=== PATIENT | female | born 1985 | race Caucasian/White ===

== ENCOUNTER 2016-08-15 02:51 | Inpatient (IN) | payer BC ==
[2016-08-15] MEDS ORDERED: Sodium Chloride 0.9% 10 ML Syringe FLUSH PRN (03:01)
[2016-08-15] MEDS ORDERED: Nalbuphine 20 MG/1 ML Amp IVPUSH PRN (03:01)
[2016-08-15] MEDS ORDERED: Ondansetron 4 MG/2 ML SDV IVPUSH PRN (03:01)
[2016-08-15] MEDS ORDERED: Oxytocin/Lactated Ringers 10 UNIT/1,000 ML BAG IV ONE (03:13)
[2016-08-15] MEDS ORDERED: Oxytocin/Lactated Ringers 10 UNIT/1,000 ML BAG IV SCH (03:15)
[2016-08-15] MEDS ORDERED: Lactated Ringers 1,000 ML IV SCH (03:15)
[2016-08-15] MEDS ORDERED: Lidocaine 1% 20 ML MDV INJECT ONE (03:17)
--- NOTE | 2016-08-15 03:42 | PCM.LDHP ---
L&D History of Present Illness - General Date of Service: 08/15/16 Admit Problem/Dx: Patient Status Order with Admit Dx/Problem 08/15/16 03:01 Patient Status [ADT] Routine Admission Diagnosis/Problem Admission Diagnosis/Problem Normal labor 08/15/16 03:30 38-3/7 week intrauterine , spontaneous labor, precipitous delivery Source of Information: Patient History Limitations: Reports: No Limitations - History of Present Illness Introduction:: History and physical was done after delivery the babyprecipitous delivery with baby delivery less than 20 minutes after patient had arrived at the hospital. History of present illness: Rae is a 31-year-old 2 now para 2001 who was seen last evening in labor and delivery with questionable early labor but some pink discharge. She is dougie approximately every 10 minutes at that time, mild in nature. Patient was discharged home and given instructions as to when to return. She continued to progress through labor with more frequent contractions and began having a Essure feeling in the pelvis. She returned to the hospital and was found to be 9 cm and delivered within 20 minutes. 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 Her last menstrual period started on , was relatively certain, using no control time conception. Cycles come every 28-29 days. Menarche age 13. Positive hCG was 12/24/2015. Previous delivery included a female infant 07/13/2011 at 38 weeks gestational age after 6 hours of labor. It was a normal spontaneous vaginal delivery at [facility]. Child's name is Citlaly . Patient had 3 ultrasounds supporting her LMP dating. First was on 01/05/2016 followed by 1 on 02/08/2016 and 04/19/2016. course was accompanied by anemia in for which she took iron therapy 324 mg per day ferrous sulfate. She also had some clinical depression. She declined genetic testing. She desired a natural delivery. [place] depression screening score however was only 0_of 30 test. Group B strep screen is negative. Patient planned to nurse. The platelet count was minimally decreased throughout the . She has subclinical hyperthyroidism. First visit was on 02/07/2016 at 11 weeks and 2 days. She made good fundal height growth during the course of the and weight 1 from a preliminary weight 149.8-172 pounds. This was a 23 pound weight gain. Baby presented in a vertex presentation. Laboratory testing and shows blood to be a positive. First hemoglobin was 13.9 and platelets are 186,000. Her rubella titer showed immunity. RPR is nonreactive. Urine culture was negative. Hepatitis B surface antigen and HIV S' s are negative. Chlamydia and gonorrhea both negative. TSH was less than 0.007 mU/L. Second trimester labs showed hemoglobin 12.6 g/dL and platelets of 155, 000. Third trimester hemoglobin is 12.8 and platelets are 168,000. Her group B strep screen was negative. Allergies: None Medications: 1. Calcium 500 mg/vitamin D-1 daily. 2. vitamins-1 daily 3. Metronidazole-10 milligrams daily 4. Iron in the form of ferrous sulfate 325 mg tablets-1 daily Past medical history: 1. Vaginal delivery 2. Hyperthyroidism on medications 3. Infertilityuse of Clomid for this . Past surgical history: 1. T&A 1989 2. [place] teeth extraction 2005. Family history: Mother and father are generally healthy. Father has hypercholesterolemia. Mother has lupus which involves her skin. 3 sisters are alive and well. Maternal grandmother is secondary to diabetic complications. Maternal grandfather secondary to Alzheimer's. Paternal grandmother alive with hypertension and increased cholesterol. Also has heart disease and parathyroid disease. Paternal grandfather is alive with elevated lipids and hypertension. No bleeding, blood clotting, anesthesia or problems noted in the family. Social history: Patient is . She lives in [place]. 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. She is a college graduate. Her 's name is Audi Blackburn. She does not use any significant amounts of alcohol, drugs or tobacco. Review of systems: Skin-negative Cardiovascular-no chest pain or exercise intolerance Respiratory-denies any infectious or asthma symptoms Breasts -changes associated with only GI-negative -changes associated with Musculoskeletal-occasional minimal edema Neurologicalnegative Physical exam: In general the patient is a well-nourished, pleasant female status post delivery of a viable infant. She is alert and oriented 3 and is a good historian. Skin is warm and dry without lesions. HEENT, neck and back within normal limits Lungs are clear with good breath sounds. Cardiovascular exam shows regular rate and rhythm without murmurs. Breast exam deferred. Abdomen is flat, soft, nontender with uterus at umbilicus -2 cm. Patient status post delivery. Uterus is firm with Pitocin running. Extremities are within normal limits as is neurological exam - Related Data Allergies/Adverse Reactions: Allergies Allergy/AdvReac Type Severity Reaction Status Date / Time No Known Allergies Allergy Verified 08/15/16 03:03 H&P Review of Systems - Review of Systems: Review Of Systems: See Below L&D Exam - Exam Exam: See Below - Vital Signs Weight: 77.882 kg Problem List Initiated/Reviewed/Updated: Yes Orders Last 24hrs: Active Orders 24 hr Category Date Time Status Patient Status [ADT] Routine ADT 08/15/16 03:01 Active Activity as Tolerated [RC] PFP Care 08/15/16 03:01 Active Communication Order [RC] ASDIRECTED Care 08/15/16 03:01 Active Heart Tones [RC] ASDIRECTED Care 08/15/16 03:01 Active Notify Provider [RC] PFP Care 08/15/16 03:01 Active Notify Provider [RC] PRN Care 08/15/16 03:01 Active Peripheral IV Care [RC] . DIRECTED Care 08/15/16 03:01 Active Vital Signs [RC] PER UNIT ROUTINE Care 08/15/16 03:01 Active Lactated Ringers [Ringers, Lactated] 1,000 ml Med 08/15/16 03:15 Active IV ASDIRECTED Nalbuphine [Nubain] Med 08/15/16 03:01 Active 10 mg IVPUSH Q2H PRN Ondansetron [Zofran] Med 08/15/16 03:01 Active 4 mg IVPUSH Q4H PRN Oxytocin/Lactated Ringers [Pitocin in LR 10 Units/1,000 Med 08/15/16 03:15 Active ML] 10 unit in 1,000 ml IV TITRATE Sodium Chloride 0.9% [Saline Flush] Med 08/15/16 03:01 Active 10 ml FLUSH ASDIRECTED PRN Electronic Heart Tones Ext w TOCO [WOMSER] Oth 08/15/16 03:01 Ordered Routine Electronic Heart Tones Internal [WOMSER] Per Unit Oth 08/15/16 03:01 Ordered Routine Peripheral IV Insertion Adult [OM.PC] Routine Oth 08/15/16 03:01 Ordered Resuscitation Status Routine Resus Stat 08/15/16 03:01 Ordered Medication Orders Lactated Ringer's (Ringers, Lactated) 1,000 mls @ 100 mls/hr IV ASDIRECTED FRANCESCA Oxytocin/Lactated Ringer's (Pitocin In Lr 10 Units/1,000 Ml) 10 unit in 1,000 mls @ 500 mls/hr IV TITRATE FRANCESCA PRN Reason: Protocol Nalbuphine HCl (Nubain) 10 mg IVPUSH Q2H PRN PRN Reason: Pain (moderate 4-6) Ondansetron HCl (Zofran) 4 mg IVPUSH Q4H PRN PRN Reason: Nausea/Vomiting Sodium Chloride (Saline Flush) 10 ml FLUSH ASDIRECTED PRN PRN Reason: Keep Vein Open Assessment/Plan Comment:: Assessment: 1. 2 now para 2001 with precipitous delivery occurring less than 20 minutes after arrival in the hospital. Viable, male infant with Apgars of 9 and 9 and a weight of 3240 g (7 lbs. 2 oz.) 2. Group B strep screen negative 3. Patient plans to nurse 4. Rh+ Plan: 1. Routine post care new prepped 2. Motrin and Tylenol for pain control 3. Support nursing decision.
--- NOTE | 2016-08-15 03:49 | PCM.SN ---
- Free Text/Narrative Note: Delivery note: Antoinette is a 31-year-old 2 now para 2002 white female who precipitously delivered on the a.m. of 08/15/2016 within 20 minutes of She had been evaluated in labor and delivery earlier the evening before and sent home with possible early labor. She was dougie approximately every 10 minutes at that time. Contractions picked up and patient arrived back in labor and delivery at 9 cm dilation. She rapidly went to complete and felt the urge to push. She had no anesthetic in place. She then delivered a viable, mcintyre, 3240 g (7 pound, 2 ounce) male infant with Apgars of 9 and 9 and a length of 21 inches in a left occiput anterior position. Shoulders delivered without problems and baby delivered completely and was placed on mom's abdomen. The umbilical cord was allowed to pulsate for 30-60 seconds and then was clamped and then cut by the father. Cord blood was obtained. A small second-degree laceration occurred. The area was infiltrated with approximately 8 mL of 1% lidocaine. It was closed in a routine fashion using 3- 0 Monocryl suture. Patient tolerated this well. Placenta delivered in a Joey presentation, appeared intact and complete. Pitocin was administered per protocol after delivery of the baby. Blood loss is 100 mL. Patient is nursing. Condition: Good
[2016-08-15] MEDS ORDERED: Benzocaine/Menthol 20%-0.5% Spray 56 GM Canister TOP PRN (03:51)
[2016-08-15] MEDS ORDERED: Docusate Sodium 100 MG Cap PO PRN (03:51)
[2016-08-15] MEDS ORDERED: Witch Hazel Medicated Pads 100/Jar TOP PRN (03:51)
[2016-08-15] MEDS ORDERED: Lanolin 100% Cream 7 GM Tube TOP PRN (03:51)
[2016-08-15] MEDS: Ibuprofen 600 MG Tab PO PRN ×4 (04:18→21:58)
[2016-08-15] MEDS: Lidocaine 1% 50 ML MDV ONE (05:13)
[2016-08-15] MEDS: Acetaminophen 325 MG Tab PO PRN ×2 (08:07→14:14)
[2016-08-15] MEDS: Methimazole 5 MG Tab PO SCH (08:07)
[2016-08-16] MEDS: Lidocaine 1% 50 ML MDV ONE (01:58)
[2016-08-16] MEDS: Ibuprofen 600 MG Tab PO PRN (07:59)
[2016-08-16] MEDS: Methimazole 5 MG Tab PO SCH (08:34)
--- NOTE | 2016-08-16 08:51 | PCM.DCSUM1 ---
Discharge Summary - Hospital Course Free Text/Narrative:: Antoinette is a 31-year-old 2 now para 2002 white female who precipitously delivered on the a.m. of 08/15/2016 within 20 minutes of She had been evaluated in labor and delivery earlier the evening before and sent home with possible early labor. She was dougie approximately every 10 minutes at that time. Contractions picked up and patient arrived back in labor and delivery at 9 cm dilation. She rapidly went to complete and felt the urge to push. She had no anesthetic in place. She then delivered a viable, mcintyre, 3240 g (7 pound, 2 ounce) male infant with Apgars of 9 and 9 and a length of 21 inches in a left occiput anterior position. Shoulders delivered without problems and baby delivered completely and was placed on mom's abdomen. The umbilical cord was allowed to pulsate for 30-60 seconds and then was clamped and then cut by the father. Cord blood was obtained. A small second-degree laceration occurred. The area was infiltrated with approximately 8 mL of 1% lidocaine. It was closed in a routine fashion using 3- 0 Monocryl suture. Patient tolerated this well. Placenta delivered in a Joey presentation, appeared intact and complete. Pitocin was administered per protocol after delivery of the baby. Blood loss is 100 mL. Patient is nursing. patient is done very well. She is nursing without concerns, ambulating well and has minimal lochia. Her vital signs and stable. She is desiring discharge home. - Discharge Data Discharge Date: 08/16/16 Discharge Disposition: Home, Self-Care 01 Condition: Good - Patient Instructions Diet: Regular Diet as Tolerated (Nursing diet with increased calcium and calories as directed) Activity: As Tolerated (No intercourse or tampons until bleeding resolves) Driving: May Drive Today Showering/Bathing: May Shower (May take a bath) Notify Provider of: Fever, Increased Pain, Swelling and Redness, Nausea and/or Vomiting - Discharge Plan Home Medications: Home Meds Ibuprofen [IJD: Ibuprofen] 600 mg PO Q4H PRN #30 tablet 08/16/16 [Rx] Referrals: Brent Siegel MD [Primary Care Provider] - (Return to clinic-Dr. Napoles. [facility]-) - Discharge Summary/Plan Comment DC Time >30 min.: No Discharge Summary/Plan Comment: Discharge instructions: 1. Discharge home 2. Regular, high fiber, nursing diet with increased calcium and calories as directed 3. Follow-up and activity discussed in detail with patient. 4. Precautions given concern increased pain, bleeding, temperature, signs/ symptoms of DVT/PE. 5. Medications per home medication list printed, discussed was then given to the patient. 6. Return to clinic-Dr. Siegel[facility]-6 weeks. Diagnosis: 38 week -delivered Condition: Good - Patient Data Vitals - Most Recent: Last Vital Signs Temp 36.4 C 08/15/16 21:13 Pulse 67 08/15/16 21:13 Resp 18 08/15/16 21:13 BP 95/70 08/15/16 21:13 Pulse Ox 99 08/15/16 21:13 Weight - Most Recent: 77.882 kg I&O - Last 24 hours: Intake & Output 08/15/16 08/16/16 08/16/16 22:59 06:59 14:59 Intake Total 360 Balance 360 Lab Results - Last 24 hrs: Laboratory Results - last 24 hr 08/16/16 Range/Units 06:48 WBC 8.57 (3.98-10.04) K/mm3 RBC 3.89 L (3.98-5.22) M/mm3 Hgb 12.4 (11.2-15.7) gm/L Hct 37.1 (34.1-44.9) % MCV 95.4 H (79.4-94.8) fl MCH 31.9 (25.6-32.2) pg MCHC 33.4 (32.2-35.5) g/dl RDW Std Deviation 45.5 (36.4-46.3) fL Plt Count 143 L (182-369) K/mm3 MPV 9.5 (9.4-12.3) fl Med Orders - Current: Current Medications Acetaminophen (Tylenol) 650 mg PO Q4H PRN PRN Reason: mild pain or fever Last Admin: 08/15/16 14:14 Dose: 650 mg Benzocaine/Menthol (Dermoplast Pain Relief [place]) 0 gm TOP ASDIRECTED PRN PRN Reason: Perineal Comfort Measure Last Admin: 08/15/16 05:13 Dose: 1 applic Docusate Sodium (Colace) 100 mg PO BID PRN PRN Reason: Constipation Last Admin: 08/15/16 08:07 Dose: 100 mg Emollient Ointment (Lansinoh Hpa) 0 gm TOP ASDIRECTED PRN PRN Reason: Sore Nipples Ibuprofen (Motrin) 600 mg PO Q4H PRN PRN Reason: Mild pain or fever Last Admin: 08/16/16 07:59 Dose: 600 mg Methimazole (Methimazole) 10 [facility] Last Admin: 08/16/16 08:34 Dose: 10 mg Witch Sandra (Tucks) 1 pad TOP ASDIRECTED PRN PRN Reason: Hemorrhoid pain Last Admin: 08/15/16 05:12 Dose: 1 applic Discontinued Medications Lactated Ringer's (Ringers, Lactated) 1,000 mls @ 100 mls/hr IV ASDIRECTED [facility] Last Admin: 08/15/16 05:13 Dose: 500 mls/hr Oxytocin/Lactated Ringer's (Pitocin In Lr 10 Units/1,000 Ml) 10 unit in 1,000 mls @ 500 mls/hr IV TITRATE [facility] PRN Reason: Protocol Oxytocin/Lactated Ringer's (Pitocin In Lr 10 Units/1,000 Ml) 10 unit in 1,000 mls @ 3,000 mls/hr IV ONETIME ONE; 500 MUNITS/MIN PRN Reason: Protocol Stop: 08/15/16 03:32 Last Admin: 08/15/16 03:13 Dose: 500 munits/min, 3,000 mls/hr Lidocaine HCl (Xylocaine 1%) Confirm Administered Dose 50 ml .ROUTE .STK-MED ONE Stop: 08/15/16 03:14 Last Admin: 08/16/16 01:58 Dose: Not Given Lidocaine HCl (Xylocaine 1%) 50 ml INJECT ONETIME ONE Stop: 08/15/16 03:18 Last Admin: 08/15/16 03:17 Dose: 50 ml Nalbuphine HCl (Nubain) 10 mg IVPUSH Q2H PRN PRN Reason: Pain (moderate 4-6) Ondansetron HCl (Zofran) 4 mg IVPUSH Q4H PRN PRN Reason: Nausea/Vomiting Sodium Chloride (Saline Flush) 10 ml FLUSH ASDIRECTED PRN PRN Reason: Keep Vein Open *Q Meaningful Use (DIS) - VTE *Q VTE Criteria *Q: - Stroke *Q Stroke Criteria *Q: - AMI *Q AMI Criteria *Q:
[2016-08-16 09:45] VITALS: BP 96/63
== END 2016-08-16 09:55 | disposition home or self-care (01) | DRG 560 ==
LOC: JD.OBCHECK 02:51 → JD.OB 02:55 → JD.OBCHECK 03:05 → OBSVTOIN 03:06 → JD.OB 03:06
PROVIDERS: ADMIT Obstetrics & Gynecology; ATTEND Obstetrics & Gynecology
PROC: 10E0XZZ Delivery of Products of Conception, External Approach (ICD-10-PCS; principal; 2016-08-15)
PROC: 0KQM0ZZ Repair Perineum Muscle, Open Approach (ICD-10-PCS; 2016-08-15)
DX: O62.3 Precipitate labor (principal); Z3A.38 38 weeks gestation of pregnancy; Z37.0 Single live birth; O99.284 Endocrine, nutritional and metabolic diseases complicating childbirth; E03.9 Hypothyroidism, unspecified; Z79.899 Other long term (current) drug therapy; O70.1 Second degree perineal laceration during delivery
CPT/HCPCS: 36415; 85027; A9270-GY; J2590; J7120

== ENCOUNTER 2021-05-01 16:00 | Emergency (ER) | payer BC ==
[2021-05-01] MEDS ORDERED: Sodium Chloride 0.9% 10 ML Syringe FLUSH PRN (16:47)
[2021-05-01 18:51] VITALS: BP 121/69; PULSE 75
== END 2021-05-01 18:50 | disposition home or self-care (01) ==
LOC: JD.ED 16:00
DX: R07.89 Other chest pain (principal)
CPT/HCPCS: 36415; 71045; 71045-26; 80053; 81003; 83690; 83735; 84443; 84484; 85025; 86140; 93005; 93225; 93226; 99285-25

== ENCOUNTER 2023-12-07 22:17 | Emergency (ER) | payer BC ==
[2023-12-07 23:10] LABS: BASOPHILS PERCENT AUTO 0.5 % (0.0-1.0); EOSINOPHILS PERCENT AUTO 0.7 % (0.0-6.0); HEMATOCRIT 38.3 % (37.0-47.0); IMMATURE GRAN ABSOLUTE AUTO 0.01 K/mm3 (0.00-0.05); IMMATURE GRAN PERCENT AUTO 0.2 % (0.0-0.4); LYMPHOCYTES ABSOLUTE AUTO 1.9 K/mm3 (1.0-4.8); LYMPHOCYTES PERCENT AUTO 45.6 % (24.0-44.0); MEAN CORPUSCULAR HEMOGLOBIN 30.7 pg (28.0-32.0); MEAN CORPUSCULAR HGB CONC 33.9 g/dl (32.0-36.0); MEAN CORPUSCULAR VOLUME 90.5 fl (83.0-99.0); MEAN PLATELET VOLUME 10.1 fl (9.4-12.3); MONOCYTES ABSOLUTE AUTO 0.4 K/mm3 (0.0-0.8); MONOCYTES PERCENT AUTO 8.2 % (0.0-8.0); NEUTROPHILS ABSOLUTE AUTO 1.9 K/mm3 (1.8-7.7); NEUTROPHILS PERCENT AUTO 44.8 % (41.0-71.0); PLATELET COUNT,PLT 138 K/mm3 (150-400); RED BLOOD CELL COUNT 4.23 M/mm3 (4.10-5.30); WHITE BLOOD CELL COUNT,WBC 4.25 K/mm3 (3.9-11.3)
[2023-12-07] MEDS: Ibuprofen 800 MG Tab PO ONE (23:26)
[2023-12-07 23:28] VITALS: BP 104/58; PULSE 76
[2023-12-07 23:40] LABS: A/G RATIO 1.2 (1-2); ALANINE AMINOTRANSFERASE,ALT 30 U/L (14-59); ALBUMIN 3.7 g/dl (3.4-5.0); ALKALINE PHOSPHATASE 31 U/L (46-116); ANION GAP 11.4 (5-15); ASPARTATE AMNIOTRANSFERASE,AST 15 U/L (15-37); BILIRUBIN TOTAL 0.3 mg/dL (0.2-1.0); BLOOD UREA NITROGEN,BUN 12 mg/dL (7-18); BUN/CREATININE RATIO 17.1 (14-18); CALCIUM 8.7 mg/dL (8.5-10.1); CARBON DIOXIDE,CO2 28 mEq/L (21-32); CHLORIDE,CL 107 mEq/L (98-107); CREATININE 0.7 mg/dL (0.55-1.02); EST CRCL DRUG DOSING (CG) 112.26 mL/min; ESTIMATED GFR 113 mL/min (>60); GLUCOSE RANDOM 106 mg/dL (70-99); POTASSIUM,K 3.4 mEq/L (3.5-5.1); PROTEIN TOTAL,TP 6.7 g/dl (6.4-8.2); SODIUM,NA 143 mEq/L (136-145)
[2023-12-07 23:56] LABS: TROPONIN I HIGH SENSITIVITY < 4 pg/mL (<=51)
== END 2023-12-08 00:24 | disposition home or self-care (01) ==
LOC: JD.ED 22:17
DX: R07.89 Other chest pain (principal); E05.90 Thyrotoxicosis, unspecified without thyrotoxic crisis or storm
CPT/HCPCS: 36415; 71045; 71045-26; 80053; 84484; 85025; 93005; 99285; A9270-GY